=== PATIENT | female | born 1960 | race Caucasian/White ===

== ENCOUNTER 2024-01-05 09:41 | Inpatient (IN) | payer OTHER, SELFPAY ==
[2024-01-05] VITALS (10 sets, daily range): BP systolic 140–204; BP diastolic 78–117; PULSE 73–89; RESP 16–20; TEMP 36.4–37; O2SAT 93–100; BMI 30.9; BMI 31.0
--- NOTE | 2024-01-05 | ECG_ITS ---
Test Reason : HYPERTENSION Blood Pressure : / mmHG Vent. Rate : 074 BPM Atrial Rate : 074 BPM P-R Int : 138 ms QRS Dur : 082 ms QT Int : 388 ms P-R-T Axes : 038 004 030 degrees QTc Int : 430 ms Normal sinus rhythm Normal ECG No previous ECGs available Referred By: Generic ED Physician Electronically Signed By:CHARLEE GUPTA
--- NOTE | ~2024-01-05 | MR_ITS ---
MRI OF THE BRAIN WITHOUT IV CONTRAST INDICATION: CVA. COMPARISON: CT head and CTA head and neck 01/05/2024. TECHNIQUE: Multiplanar multisequence MR imaging of the brain was obtained without IV contrast. FINDINGS: There are a few punctate acute infarcts within the right dorsal coleen and involving the right frontal lobe at the high convexity. No mass effect and no hemorrhagic transformation. There is no hydrocephalus, extra-axial surface collection, or herniation. The major flow voids at the skull base are preserved. There is no intracranial hemorrhage on the gradient recalled echo acquisition. The midline structures are normal. The cerebellar tonsils are normally positioned. T2 signal changes throughout the supratentorial white matter and central coleen, possibly advanced chronic microangiopathy though nonspecific. There is a chronic infarct within the left frontal lobe. There are chronic microhemorrhages within the deep corral nuclei bilaterally, the brainstem, the cerebellar hemispheres, and the periphery of the cerebral hemispheres that could reflect chronic hypertensive microhemorrhages and/or that could be the sequela of amyloid angiopathy. Etat crible appearance of the basal ganglia bilaterally as the sequela of chronic hypertension. The craniocervical junction is normal. Osseous marrow signal intensity is homogenous. The visualized soft tissues are unremarkable. MR/MR head/brain wo con IMPRESSION: - There are a few punctate acute infarcts within the right dorsal coleen and involving the right frontal lobe at the high convexity. No mass effect and no hemorrhagic transformation. - T2 signal changes throughout the supratentorial white matter and central coleen, possibly advanced chronic microangiopathy though nonspecific. There is a chronic infarct within the left frontal lobe. - There are chronic microhemorrhages within the deep corral nuclei bilaterally, the brainstem, the cerebellar hemispheres, and the periphery of the cerebral hemispheres that could reflect chronic hypertensive microhemorrhages and/or that could be the sequela of amyloid angiopathy. - Etat crible appearance of the basal ganglia bilaterally as the sequela of chronic hypertension. Chronic lacunar infarcts within the cerebellar hemispheres bilaterally.
--- NOTE | ~2024-01-05 | CT_ITS ---
EXAMINATION: CT ANGIOGRAM HEAD CT ANGIOGRAM NECK CLINICAL INFORMATION: left sided numbness COMPARISON: None. TECHNIQUE: Test bolus sequences followed by intravenous administration 65 mL of Omnipaque 350. Helical imaging was performed in the axial plane from the aortic arch to the skull vertex. Delayed postcontrast imaging of the head was also performed. The data was processed at the lead neurodiagnostic technologist's workstation for generation of MIP sequences. Angled MIPs and volume rendered reformatted images were also generated at an offline 3D workstation. Stenoses are assessed in accordance with Cox et al. Quantification of Carotid Stenosis on CT Angiography. AJR 2006. 27(1):13-19. [address] CT examination was performed using dose optimization techniques as appropriate, variously including the following: *Automated exposure control *Adjustment of mA and/or kV according to patient size (this includes techniques or standardized protocols for targeted exams where dose is matched to indication/reason for exam; i.e. extremities or head) *Use of iterative reconstruction technique DLP: 1369.31 mGy-cm FINDINGS: CT HEAD: The ventricles and sulci are normal in size and configuration without significant volume loss or hydrocephalus. Confluent and patchy hypodensity in the right ventricular and deep white matter as well as deep corral nuclei, nonspecific but may suggest advanced chronic microangiopathy, which limits assessment for superimposed acute white matter process/ischemia. Age indeterminate hypodensity in the anterior left frontal lobe inclusive of the operculum would be more definitively aged on MRI. Chronic lacunar infarct in the left cerebellum. No acute intracranial hemorrhage or extra-axial fluid collection. No mass lesion, significant mass effect, or herniation pattern. No pathologic intra-axial enhancement or regional oligemia. The orbits are grossly normal. Paranasal sinuses and mastoid air cells are well aerated. Osseous structures are intact. CTA HEAD: No hemodynamically significant stenosis or occlusion in the anterior or posterior circulation. Mild stenosis of the distal basilar artery proximal to the basilar tip. right MEDICAL CARE ADMINISTRATOR. Prominent left posterior communicating artery with ectatic appearance of the distal left P1 segment and either stenotic versus congenitally hypoplastic proximal left P1 segment. Trace calcific plaque along the bilateral carotid siphons without associated stenosis. No aneurysms and no high flow vascular malformations. Timing of the contrast bolus allows assessment of the major dural venous sinuses, which all opacify normally CTA NECK: Classic 3 vessel branching pattern of the aortic arch. Origins of the great vessels are widely patent. The common carotid arteries are widely patent. The carotid bifurcations and bilateral internal carotid arteries are normal. The left vertebral artery is dominant. limited diagnostic assessment of the vertebral artery origins. Both vertebral arteries are widely patent throughout their extracranial cervical course. CT NECK: Horizontally impacted bilateral posterior mandibular molars and left posterior maxillary molar with pericoronal lucency of the right posterior mandibular molar. Carious left maxillary second molar and right maxillary molar, the latter with eroded dental crown and prominent periapical lucency. Asymmetric soft tissue fullness and enhancement in the right anterior tonsillar fossa with a peripherally enhancing low density focus measuring 4 mm (image 463, series 504), which may reflect asymmetric palatine tonsillar hyperplasia with retention cyst however recommend correlation with direct inspection to exclude underlying mucosal lesion. Paraseptal emphysema. Reversal of the normal cervical lordosis with cervical spondylitic changes contributing to apparent moderate C5-C6 and varying degrees of moderate to high-grade neural foraminal stenosis. 1.3 cm heterogeneous soft tissue within the left submandibular/submental region is favored to reflect partially herniated left sublingual gland via mylohyoid boutonniere defect. CT/CT angio head neck stroke IMPRESSION: 1. Advanced supratentorial white matter disease may reflect chronic microangiopathy or other white matter process, limiting assessment for superimposed acute ischemia. Age indeterminate hypodensity in the anterior left frontal lobe inclusive of the operculum would be more definitively aged on MRI. Chronic lacunar infarct in the left cerebellum. 2. No acute arterial occlusion or hemodynamically significant stenosis within the head or neck. 3. Cervical spondylitic changes contributing to apparent moderate C5-C6 and varying degrees of moderate to high-grade neural foraminal stenosis which could be further evaluated with cervical spine MRI if there is referrable myelopathy/radiculopathy. 4. Dental caries for which correlation with dental examination is advised. 5. Asymmetric soft tissue fullness and enhancement in the right anterior tonsillar fossa with a peripherally enhancing low density focus measuring 4 mm (image 463, series 504), which may reflect asymmetric palatine tonsillar hyperplasia with retention cyst however recommend correlation with direct inspection to exclude underlying mucosal lesion. Impression [address] Misbah Houser 12:39 PM PM and it was ascertained that the content and urgency of the report was understood at the time of direct communication.
--- NOTE | ~2024-01-05 | CT_ITS ---
EXAMINATION: CT HEAD WITHOUT CONTRAST (STROKE PROTOCOL) CLINICAL INFORMATION: Stroke protocol. Left-sided numbness COMPARISON: None available. TECHNIQUE: Contiguous axial imaging was performed from the skull base to vertex without intravenous administration of contrast. This CT examination was performed using dose optimization techniques as appropriate, variously including the following: *Automated exposure control *Adjustment of mA and/or kV according to patient size (this includes techniques or standardized protocols for targeted exams where dose is matched to indication/reason for exam; i.e. extremities or head) *Use of iterative reconstruction technique DLP: 605 mGy-cm FINDINGS: There is no evidence of acute intracranial hemorrhage or territorial infarction. No abnormal mass effect or midline shift is appreciated. Vogt-white differentiation is well preserved. No extra-axial fluid collections. The ventricular system and cortical sulci are prominent, consistent with age-appropriate volume loss. There are areas of low density in the periventricular and subcortical white matter, most consistent with sequelae of microvascular ischemic change. Soft tissues and osseous structures are unremarkable. There are calcifications of the cavernous internal carotid arteries. The visualized paranasal sinuses and mastoid air cells are well aerated. CT/CT head for stroke IMPRESSION: No acute intracranial pathology. Results relayed to Misbah Houser by Kristen Richmond at 12:17 PM.
--- NOTE | 2024-01-05 10:30 | PC.NURSE ---
Pt coming in from home via PV, pt reports she woke up this morning around 530 AM with numbness and tingling to her left side. Pt denies any falls, recent illnesses, CP, SOB, GRIMM or dizziness. Pt denies any changes in vision or this happening before. Pt does report some back to left lower back to the upper back thigh area. Pt is alert and oriented, breathing even and unlabored, skin WNL. Pt neg for slurred speech, facial droop, arm drift. Pt noted to be hypertensive.
[2024-01-05 11:29] LABS: MANUAL DIFF FLAG NO
[2024-01-05 11:32] LABS: Basophils Percent Auto 0.7 % (0-2); Eosinophils Absolute Auto 0.1 X10*3/uL (0.0-0.4); Eosinophils Percent Auto 1.2 % (0-4); Hematocrit 43.3 % (37.0-47.0); Hemoglobin 14.4 g/dl (12.0-16.0); Imm Gran Abs Auto 0.01 X10*3/uL (0.00-0.03); Imm Gran Pct Auto 0.2 % (0.0-0.4); Lymphocytes Absolute Auto 1.4 X10*3/uL (1.2-4.9); Lymphocytes Percent Auto 23.9 % (20-40); Mean Corpuscular HGB Conc 33.3 g/dl (31.0-35.0); Mean Corpuscular Volume 93.1 fL (80.0-98.0); Mean Platelet Volume 11.4 fL (9.4-12.3); Monocytes Absolute Auto 0.5 X10*3/uL (0.1-1.2); Monocytes Percent Auto 8.8 % (2-11); Neutrophils Absolute Auto 3.8 x10*3/uL (2.0-8.3); Neutrophils Percent Auto 65.2 % (45-73); Platelet Count 211 X10*3/uL (160-400); Red Blood Count 4.65 X10*6/uL (4.20-5.50); Red Cell Distribution Width 13.1 % (11.0-16.0); White Blood Count 5.8 X10*3/uL (4.8-10.8)
[2024-01-05 11:37] LABS: Prothrombin Time 11.6 SEC (11.1-13.3)
[2024-01-05 11:51] LABS: Alanine Aminotransferase 16 U/L (0-31); Albumin Level 3.8 g/dL (3.5-5.0); Alkaline Phosphatase 94 U/L (39-117); Anion Gap 10 (12-20); Aspartate Amino Transferase 14 U/L (5-31); Bilirubin Total 0.3 mg/dL (0.0-1.0); Blood Urea Nitrogen 14 mg/dL (9-16); Calcium 8.9 mg/dL (8.4-10.2); Carbon Dioxide 26 mmol/L (22-29); Chloride 110 mmol/L (96-108); Creatinine Clr Calc Pharmacy 109.8; Estimated Glomerular Filt Rate > 60; Glucose Random 89 mg/dL (60-115); Potassium 3.1 mmol/L (3.3-5.1); Sodium 143 mmol/L (135-145); Total Protein 6.6 g/dL (6.5-8.0)
--- NOTE | 2024-01-05 11:56 | ED.NEUROSD ---
HPI - Neuro Symptoms/Deficit General Chief Complaint: Neuro Symptoms/Deficit Stated Complaint: L Side Numbness Time Seen by Provider: 01/05/24 11:29 Source: patient and family Mode of arrival: ambulatory Limitations: no limitations History of Present Illness HPI Narrative: left sided numbness since waking up Onset (ago): hour(s) Severity: mild Related Data Allergies Allergy/AdvReac Type Severity Reaction Status Date / Time oxycodone AdvReac Hallucinati Verified 01/05/24 09:56 ons Review of Systems Review of Systems: Yes all other systems are reviewed and are negative Neurologic: Denies Sensory deficit (Neuro) [facility] Social History Social History Smoked in Last 30 Days: No Use of substances other than those prescribed or required for medical reasons: No Advance Directives: No Advance Directives Information Provided: Yes Physical Exam Vital Signs: Vital Signs: Last Vital Signs Temp 97.8 F 01/05/24 10:18 Pulse 74 01/05/24 12:51 Resp 16 01/05/24 12:51 BP 198/104 H 01/05/24 12:51 Pulse Ox 95 01/05/24 12:51 O2 Del Method Room Air 01/05/24 12:51 BMI result Body Mass Index 30.9 Const: General: healthy appearing Nutritional Appearance: average body habitus Orientation/consciousness: oriented to person and patient oriented x3 Limitations: no limitations HEENT: Head: Yes normal to inspection Ears: external ears normal General nose exam: Normal external nose present Mouth: Normal oral and palatal mucosa present and oropharynx normal Throat: Yes posterior oropharynx normal Eyes: General: appearance normal, both eyes and all related structures Neck: Other: supple Neck: Yes normal visual inspection Chest: Chest palpation & inspection: normal inspection of the chest Resp: Auscultation: clear to auscultation bilaterally Cardio: Jugular venous distension: no JVD Rate: regular rate Rhythm: regular rhythm Heart sounds: S1 normal heart sound present and S2 normal heart sound present GI: Inspection: Yes normal to inspection Palpation (GI): Soft to palpation, nontender and No hepatosplenomegaly present Auscultation: normal bowel sounds : General: Yes no CVA tenderness Back/Spine/Pelvis: Back: no CVA tenderness Skin: General skin exam: no rashes or lesions noted Neuro: General: oriented to person and patient oriented x3 Cranial nerves: Yes CN's II-XII intact bilaterally Motor exam (neuro): 5/5 motor strength present throughout Sensory Exam: No Sensory deficit (Neuro) Extrem: General: Yes normal to inspection Psych: Appearance: grossly normal Course Reevaluation(s) Reevaluation #1: patient with left frontal hypodensity with left frontal numbness will admit for further workup Time: 13:00 Reevaluation #2: I spent 40 minutes of critical care, with interventions, assessments, speaking to patient, consultants, and family. Time: 13:07 Medications Administered Discontinued Medications Generic Name Dose Route Start Last Admin Trade Name Freq PRN Reason Stop Dose Admin Iohexol 100 ml 01/05/24 12:19 01/05/24 12:19 Iohexol 350 Mg/Ml 100 Ml Infus..Btl IV 01/05/24 12:20 65 ml ONCE ONE Administration Labetalol HCl 10 mg 01/05/24 11:51 01/05/24 12:43 Labetalol Hcl 100 Mg/20 Ml Vial IVPUSH 01/05/24 11:52 10 mg ONCE ONE Administration Medical Decision Making Differential Diagnosis Differential Diagnoses: The differential diagnosis associated with the presentation includes (CVA, cerebral bleed, tumor, TIA, hypertensive urgency were all considered) Admission/Observation Consideration of admission/observation: Escalation of care including admission/observation considered (upon arrival patient considered for admission) Consult Healthcare Provider Management of the patient was discussed with: Senior Product Marketing Manager (stroke team) Lab Data 01/05/24 11:24 01/05/24 11:24 Labs: Lab Results 01/05/24 01/05/24 01/05/24 Range/Units 11:24 11:55 11:56 WBC 5.8 (4.8-10.8) X10*3/uL RBC 4.65 (4.20-5.50) X10*6/uL Hgb 14.4 (12.0-16.0) g/dl Hct 43.3 (37.0-47.0) % MCV 93.1 (80.0-98.0) fL MCH 31.0 (27.0-33.0) pg MCHC 33.3 (31.0-35.0) g/dl RDW 13.1 (11.0-16.0) % Plt Count 211 (160-400) X10*3/uL MPV 11.4 (9.4-12.3) fL Immature Gran % (Auto) 0.2 (0.0-0.4) % Neut % (Auto) 65.2 (45-73) % Lymph % (Auto) 23.9 (20-40) % [place] % (Auto) 8.8 (2-11) % Eos % (Auto) 1.2 (0-4) % Baso % (Auto) 0.7 (0-2) % Lymph # (Auto) 1.4 (1.2-4.9) X10*3/uL [place] # (Auto) 0.5 (0.1-1.2) X10*3/uL Eos # (Auto) 0.1 (0.0-0.4) X10*3/uL Baso # (Auto) 0.0 (0.0-0.2) X10*3/uL Abs Immat Gran (auto) 0.01 (0.00-0.03) X10*3/uL Absolute Neuts (auto) 3.8 (2.0-8.3) x10*3/uL Absolute Nucleated RBC 0.000 (0.0-0.012) X10*3/uL Nucleated RBC % (auto) 0.0 (0.0-0.2) /100WBC PT 11.6 (11.1-13.3) SEC Whole Blood PT 12.4 (11.1-13.5) sec INR 1.0 (0.9-1.1) Whole Blood INR 1.0 (0.9-1.1) Sodium 143 (135-145) mmol/L Potassium 3.1 L (3.3-5.1) mmol/L Chloride 110 H (96-108) mmol/L Carbon Dioxide 26 (22-29) mmol/L Anion Gap 10 L (12-20) BUN 14 (9-16) mg/dL Creatinine 0.63 (0.5-1.4) mg/dL Estim Creat Clear Calc 109.8 Estimated GFR > 60 POC Glucose 101 (60-115) mg/dL Random Glucose 89 (60-115) mg/dL Calcium 8.9 (8.4-10.2) mg/dL Total Bilirubin 0.3 (0.0-1.0) mg/dL AST 14 (5-31) U/L ALT 16 (0-31) U/L Alkaline Phosphatase 94 (39-117) U/L Total Protein 6.6 (6.5-8.0) g/dL Albumin 3.8 (3.5-5.0) g/dL Independent Interpretation I performed an independent interpretation of an: EKG (sinus 74, no st or twave changess) and CT Scan (brain: left frontal hypodensity) Radiology Impression Discussion of test interpretation with radiology: I discussed test interpretation with the radiologist Independent Historian Clinical information obtained from an independent historian. History obtained from or confirmed by: Spouse Tests considered The following testing was considered but not selected: MRI of brain considered will be done as in patient NIH Stroke Scale Time: 12:00 Level of Consciousness: Alert Level of Consciousness Questions: Answers both questions correctly Level of Consciousness Commands: Performs both tasks correctly Best Gaze: Normal Visual: No visual loss Facial Palsy: Normal Motor Arm (Right): No drift Motor Arm (Left): No drift Motor Leg (Right): No drift Motor Leg (Left): No drift Limb Ataxia: Absent Sensory: Normal Best Language: No aphasia Dysarthia: Normal Extinction and Inattention: No abnormality Score: 0 Discharge Plan Discharge Clinical Impression: Transient cerebral ischemia Patient Disposition: Admitted As Inpatient
[2024-01-05 11:59] LABS: Prothrombin Time Whole Bld POC 12.4 sec (11.1-13.5)
[2024-01-05 12:00] LABS: Glucose, Whole Blood 101 mg/dL (60-115)
[2024-01-05] MEDS: iohexoL 350 MG/ML 100 ML INFUS..BTL IV (12:19)
[2024-01-05] MEDS: Labetalol HCL 100 MG/20 ML VIAL 10 MG IVPUSH (12:43)
--- NOTE | 2024-01-05 12:56 | MHC.STROKE ---
Called to ED for stroke alert. Patient reports that she woke at 0530 with left sided numbness/tingling that extended from her arm all the way down her leg into her left foot. Reports that she felt well yesterday. Denies headache. Denies any visual/language disturbances. NIH score 0 upon provider evaluation. Pt awake, alert, oriented x 3. Skin warm and dry. Resp unlabored. Denies N/V. Denies any pain. Denies headache. Speech is clear. Hand grasp slightly weaker on the left. Bilateral equal leg strength. Mild finger to nose ataxia on the left. Heel to [place] test normal bilaterally. Pt is hypertensive in the ED and receiving IV labetolol. Stroke Education provided. Nursing swallow screen completed, patient passed. CT scans complete, awaiting results. Pt educated on plan.
--- NOTE | 2024-01-05 13:15 | PC.NURSE ---
Spoke to Lab, Troponin and Lipid panel okay to be added on to blood already sent
--- NOTE | 2024-01-05 13:19 | PM.IMHP ---
History of Present Illness Date of Service: 01/05/24 Attending physician on admission: Henry Antunez Chief Complaint: Left-sided numbness Pt is a 63-year-old female with no know PMH who has not seen a PCP in many years who presents to the ED for evaluation of left-sided numbness and tingling since this morning. Pt states noticed symptoms when woke up, and extended from left shoulder to foot. Has not noticed any reduction in strength, but feels like her coordination and balance is off when walking. No facial deficits noted: Denies dysarthria, difficulty word finding, facial droop, headache, or acute vision changes. Currently her leg feels better than before, but upper extremity unchanged. Reports similar episode around 2 years ago. Says she exercised and stretched, and symptoms resolved in a few weeks. Did not seek any medical intervention at that time. Patient denies chest pain/pressure, palpitations. No shortness of breath. Denies fever, chills, nausea, vomiting, abdominal pain. In the ED pt was hypertensive up to 204/97, vitals otherwise WNL. Labs were significant for potassium 3.1, otherwise grossly unremarkable. No leukocytosis. Stable H&H. Renal and hepatic function WNL. CT of head found no acute intracranial pathology. CTA of head and neck found advanced supratentorial white matter disease, and age indeterminate hypodensity in anterior left frontal lobe, and chronic lacunar infarct in the left cerebellum. Did not find any acute arterial occlusion or hemodynamically significant stenosis within head or neck. ?Also found cervical spondylitic changes, dental caries, and asymmetric soft tissue fullness of right anterior tonsillar fossa. EKG demonstrated normal sinus rhythm without evidence of significant ST elevations or depressions. Pt was treated with labetalol. Pt will be admitted to the hospital for treatment and further evaluation of possible CVA. Review of Systems Review of Systems: Left-sided arm and foot numbness and tingling Left-sided ataxia Denies reduction and strength No dysarthria, difficulty word finding, facial droop Denies headache, acute vision changes No chest pain/pressure, palpitations PMFSH Social History Household Members: Spouse Housing: House Do you presently have visiting nurse or other home services: No Patient Tobacco Use Status: Never used Tobacco service: No Meds Allergies Allergy/AdvReac Type Severity Reaction Status Date / Time oxycodone AdvReac Hallucinati Verified 01/05/24 09:56 ons Physical Exam Vital Signs and Narrative: Vital Signs: Last Vital Signs Temp 97.8 F 01/05/24 10:18 Pulse 74 01/05/24 12:51 Resp 16 01/05/24 12:51 BP 198/104 H 01/05/24 12:51 Pulse Ox 95 01/05/24 12:51 O2 Del Method Room Air 01/05/24 12:51 BMI result Body Mass Index 30.9 Constitutional: Alert, in no acute distress. Mental Status: Oriented to person, place and time. Eyes: Pupils are equal, round, and reactive to light. Ear, Nose, and Throat: Oropharynx clear, mucous membranes moist. Ears and nose without deformities. Trachea midline. Respiratory: Clear to auscultation bilaterally. No wheezing, rales, or rhonchi. Cardiovascular: S1, S2 regular. No murmurs, rubs, or gallops. Gastrointestinal: Abdomen soft, non-tender, non-distended. Normal bowel sounds. Neurologic: Cranial nerves II-XII are grossly intact bilaterally. Moves all extremities spontaneously. Reduced sensation to light touch of left upper and lower extremity. Preserved strength and ROM of upper and lower extremities bilaterally. Skin: Warm, dry. Musculoskeletal: No cyanosis or clubbing. Extremities: No edema. Psychiatric: Normal mood and affect. Results Labs 01/05/24 11:24 01/06/24 05:25 Labs: Laboratory Results - last 24 hr 01/05/24 01/05/24 01/05/24 11:24 11:55 11:56 MCV 93.1 MCH 31.0 MCHC 33.3 RDW 13.1 Plt Count 211 MPV 11.4 Immature Gran % (Auto) 0.2 Neut % (Auto) 65.2 Lymph % (Auto) 23.9 [place] % (Auto) 8.8 Eos % (Auto) 1.2 Baso % (Auto) 0.7 Lymph # (Auto) 1.4 [place] # (Auto) 0.5 Eos # (Auto) 0.1 Baso # (Auto) 0.0 Abs Immat Gran (auto) 0.01 Absolute Neuts (auto) 3.8 Absolute Nucleated RBC 0.000 Nucleated RBC % (auto) 0.0 PT 11.6 Whole Blood PT 12.4 INR 1.0 Whole Blood INR 1.0 Anion Gap 10 L Estim Creat Clear Calc 109.8 Estimated GFR > 60 POC Glucose 101 Random Glucose 89 Calcium 8.9 Total Bilirubin 0.3 AST 14 ALT 16 Alkaline Phosphatase 94 Total Protein 6.6 Albumin 3.8 Imaging Radiologist's Impressions: Impressions Head CT 01/05/24 12:01 IMPRESSION: No acute intracranial pathology. Results relayed to Misbah Houser by Kristen Richmond at 12:17 PM. Head/Neck CTA 01/05/24 12:22 IMPRESSION: 1. Advanced supratentorial white matter disease may reflect chronic microangiopathy or other white matter process, limiting assessment for superimposed acute ischemia. Age indeterminate hypodensity in the anterior left frontal lobe inclusive of the operculum would be more definitively aged on MRI. Chronic lacunar infarct in the left cerebellum. 2. No acute arterial occlusion or hemodynamically significant stenosis within the head or neck. 3. Cervical spondylitic changes contributing to apparent moderate C5-C6 and varying degrees of moderate to high-grade neural foraminal stenosis which could be further evaluated with cervical spine MRI if there is referrable myelopathy/radiculopathy. 4. Dental caries for which correlation with dental examination is advised. 5. Asymmetric soft tissue fullness and enhancement in the right anterior tonsillar fossa with a peripherally enhancing low density focus measuring 4 mm (image 463, series 504), which may reflect asymmetric palatine tonsillar hyperplasia with retention cyst however recommend correlation with direct inspection to exclude underlying mucosal lesion. Impression [address] Misbah Houser 12:39 PM PM and it was ascertained that the content and urgency of the report was understood at the time of direct communication. Assessment and Plan (1) Numbness on left side: Status: Acute Plan Pt is a 63-year-old female with no know PMH who has not seen a PCP in many years who presents to the ED for evaluation of left-sided numbness and tingling since this morning. Pt will be admitted to the hospital for treatment and further evaluation of possible CVA. Left-sided upper and lower extremity numbness and tingling Concerning for possible CVA CTA of head/neck out age-indeterminate hypodensity in anterior frontal, chronic lacunar infarct in cerebellum Patient currently not back to baseline, upper extremity symptoms unchanged, lower extremity symptoms improved Will start on aspirin 81 mg daily, atorvastatin 40 mg daily Echocardiogram Lipid profile PT/OT Neurology consult Consider inpatient MRI pending neurology recommendations Monitor on telemetry Hypertensive urgency Blood pressure is high as 204/97 in the ED Given labetalol 10 mg IV in ED Will start mg p.o. daily Monitor BP Hypokalemia Potassium 3.1 at time of presentation Will give potassium supplementation Follow BMP White matter changes on CTA CTA showed advanced supratentorial white matter disease that may reflect chronic microangiopathy or other white matter process Mother diagnosed with dementia Family concerned with patient's short-term memory which they report as noticeably worse in the past few years Follow-up outpatient for further dementia workup Dental caries Incidental CTA findings Follow up outpatient with dentist Full Code Attending:?Dr. Antunez DVT Prophylaxis: Lovenox Pt will require a hospitalization of at least two nights for treatment of?left-sided numbness and tingling concerning for CVA. Patient will require hospitalization for additional workup for possible CVA, including additional imaging, close cardiac monitoring, and specialist consultation. Quality Stroke Does the patient have a stroke diagnosis?: No Reason for No Anti-thrombotic by Day Two: Contraindicated (Last known well time the previous evening. Outside of tNK therapeutic window.) VTE Prior VTE?: No VTE Risk Level:: Medical - moderate - high VTE Device Contraindication: Treatment Not Indicated VTE Drug Contraindication: N/A - Med Ordered
[2024-01-05 13:23] LABS: Partial Thromboplastin Time 28.2 SEC (26.0-36.8)
[2024-01-05 13:26] LABS: Stroke Lab Use COMPLETE
[2024-01-05 13:37] LABS: Cholesterol 228 mg/dL (<200); HDL Cholesterol 86 mg/dL (>40); LDL Cholesterol Calculated 129 mg/dL (<100); Triglycerides 66 mg/dL (<150); Troponin-I High Sensitivity 3.4 ng/L (<3.5-17.0)
[2024-01-05] MEDS: Potassium Chloride Packet 20 MEQ PACKET 40 MEQ PO (13:43)
--- NOTE | 2024-01-05 14:27 | PHA.MEDREC ---
Pharmacy Consult ? Medication Reconciliation Pharmacy has completed the medication reconciliation.
[2024-01-05] MEDS: amLODIPine Besylate 5 MG TABLET PO (15:17)
[2024-01-05] MEDS: Enoxaparin Sodium 40 MG/0.4 ML SYRINGE SUBCUT (15:18)
--- NOTE | 2024-01-05 17:12 | PM.NEUROCN ---
History of Present Illness Data of Consult Service Date: 01/05/24 Primary Care Provider: None Physician HPI This is a 63-year-old female who has not seen a PCP in many years and is on no meds, presents to the ED for evaluation of left-sided numbness and tingling since this morning. She noticed symptoms when woke up, and the numbness extended from left shoulder to foot. Has not noticed any reduction in strength, but feels like her coordination and balance is off when walking. No facial deficits noted: Denies dysarthria, difficulty word finding, facial droop, headache, or acute vision changes. Currently her leg feels better than before, but upper extremity unchanged. Reports similar episode around 2 years ago. Says she exercised and stretched, and symptoms resolved in a few weeks. Did not seek any medical intervention at that time. Patient denies chest pain/pressure, palpitations. No shortness of breath. Denies fever, chills, nausea, vomiting, abdominal pain. In the ED pt was hypertensive up to 204/97, vitals otherwise WNL. Labs were significant for potassium 3.1, otherwise grossly unremarkable. No leukocytosis. Stable H&H. Renal and hepatic function WNL. CT of head showed extensive white matter micrivacsular disease with no acute intracranial pathology. CTA of head and neck found did not find any acute arterial occlusion or hemodynamically significant stenosis. EKG demonstrated normal sinus rhythm without evidence of significant ST elevations or depressions. Pt was treated with labetalol. Review of Systems Review of Systems: Left-sided arm and foot numbness and tingling Left-sided ataxia Denies reduction and strength No dysarthria, difficulty word finding, facial droop Denies headache, acute vision changes No chest pain/pressure, palpitations Yes all other systems are reviewed and are negative Neurologic: Denies Sensory deficit (Neuro) [facility] Social History Social History Smoked in Last 30 Days: No Use of substances other than those prescribed or required for medical reasons: No Advance Directives: No Advance Directives Information Provided: Yes Meds Allergies Allergy/AdvReac Type Severity Reaction Status Date / Time oxycodone AdvReac Hallucinati Verified 01/05/24 09:56 ons Active Medications: Current Medications Acetaminophen (Acetaminophen 325 Mg Tablet) 650 mg PO Q6H PRN PRN Reason: Pain, Mild (Pain Scale 1-3) Amlodipine Besylate (Amlodipine Besylate 5 Mg Tablet) 5 mg PO DAILY [facility]; Protocol Last Admin: 01/05/24 15:17 Dose: 5 mg Aspirin (Aspirin Enteric Coated 81 Mg Tablet.Dr) 81 mg PO DAILY [facility] Atorvastatin Calcium (Atorvastatin Calcium 40 Mg Tablet) 40 mg PO BEDTIME [facility] Benzonatate (Benzonatate 100 Mg Capsule) 100 mg PO TID PRN PRN Reason: Cough Docusate Sodium (Docusate Sodium 100 Mg Capsule) 100 mg PO DAILY PRN PRN Reason: Constipation Enoxaparin Sodium (Enoxaparin Sodium 40 Mg/0.4 Ml Syringe) 40 mg SUBCUT Q24H [facility] Last Admin: 01/05/24 15:18 Dose: 40 mg Melatonin (Melatonin 3 Mg Tablet) 6 mg PO BEDTIME PRN PRN Reason: Insomnia Ondansetron HCl (Ondansetron Hcl 4 Mg/2 Ml Vial) 4 mg IVPUSH Q8H PRN PRN Reason: Nausea and Vomiting Sodium Chloride (0.9 % Sodium Chloride Flush 3 Ml Syringe) 3 ml IVFLUSH QSHIFT [facility] Home Medications Medication Instructions Recorded Confirmed Last Taken Type No Known Home Meds 01/05/24 01/05/24 Unknown History Physical Exam Vital Signs: Vital Signs: Last Vital Signs Temp 98.0 F 01/05/24 16:44 Pulse 73 01/05/24 16:44 Resp 18 01/05/24 16:44 BP 168/81 H 01/05/24 16:44 Pulse Ox 95 01/05/24 16:44 O2 Del Method Room Air 01/05/24 16:44 BMI result Body Mass Index 30.9 Const: General: healthy appearing Nutritional Appearance: average body habitus Orientation/consciousness: oriented to person and patient oriented x3 Limitations: no limitations HEENT: Head: Yes normal to inspection Ears: external ears normal General nose exam: Normal external nose present Mouth: Normal oral and palatal mucosa present and oropharynx normal Throat: Yes posterior oropharynx normal Eyes: General: appearance normal, both eyes and all related structures Neck: Other: supple Neck: Yes normal visual inspection Chest: Chest palpation & inspection: normal inspection of the chest Resp: Auscultation: clear to auscultation bilaterally Cardio: Jugular venous distension: no JVD Rate: regular rate Rhythm: regular rhythm Heart sounds: S1 normal heart sound present and S2 normal heart sound present GI: Inspection: Yes normal to inspection Palpation (GI): Soft to palpation, nontender and No hepatosplenomegaly present Auscultation: normal bowel sounds : General: Yes no CVA tenderness Back/Spine/Pelvis: Back: no CVA tenderness Skin: General skin exam: no rashes or lesions noted Neuro: Other: Non focal exam except some subjective sensory deficit in LUE General: oriented to person and patient oriented x3 Cranial nerves: Yes CN's II-XII intact bilaterally Motor exam (neuro): 5/5 motor strength present throughout Sensory Exam: No Sensory deficit (Neuro) Extrem: General: Yes normal to inspection Psych: Appearance: grossly normal Results Labs 01/05/24 11:24 01/05/24 11:24 Labs: Short CBC 01/05/24 Range/Units 11:24 WBC 5.8 (4.8-10.8) X10*3/uL Hgb 14.4 (12.0-16.0) g/dl Hct 43.3 (37.0-47.0) % Plt Count 211 (160-400) X10*3/uL BMP 01/05/24 11:24 Sodium 143 Potassium 3.1 L Chloride 110 H Carbon Dioxide 26 BUN 14 Creatinine 0.63 Calcium 8.9 Liver Function 01/05/24 Range/Units 11:24 Total Bilirubin 0.3 (0.0-1.0) mg/dL AST 14 (5-31) U/L ALT 16 (0-31) U/L Alkaline Phosphatase 94 (39-117) U/L Albumin 3.8 (3.5-5.0) g/dL Assessment and Plan (1) Numbness on left side: Status: Acute Probable small acute lacunar infacrt in the thalamus from small vessel disease from untreated HBP. Recom. MRI brain. PT/OT. BP control, [id number] , Atorvastatin 40mg. Plan Pt is a 63-year-old female with no know PMH who has not seen a PCP in many years who presents to the ED for evaluation of left-sided numbness and tingling since this morning. Pt will be admitted to the hospital for treatment and further evaluation of possible CVA. Left-sided upper and lower extremity numbness and tingling Concerning for possible CVA CTA of head/neck out age-indeterminate hypodensity in anterior frontal, chronic lacunar infarct in cerebellum Patient currently not back to baseline, upper extremity symptoms unchanged, lower extremity symptoms improved Will start on aspirin 81 mg daily, atorvastatin 40 mg daily Echocardiogram Lipid profile PT/OT Neurology consult Consider inpatient MRI pending neurology recommendations Monitor on telemetry Hypertensive urgency Blood pressure is high as 204/97 in the ED Given labetalol 10 mg IV in ED Will start mg p.o. daily Monitor BP Hypokalemia Potassium 3.1 at time of presentation Will give potassium supplementation Follow BMP White matter changes on CTA CTA showed advanced supratentorial white matter disease that may reflect chronic microangiopathy or other white matter process Mother diagnosed with dementia Family concerned with patient's short-term memory which they report as noticeably worse in the past few years Follow-up outpatient for further dementia workup Dental caries Incidental CTA findings Follow up outpatient with dentist Full Code Attending:?Dr. Antunez DVT Prophylaxis: Lovenox Pt will require a hospitalization of at least two nights for treatment of?left-sided numbness and tingling concerning for CVA. Patient will require hospitalization for additional workup for possible CVA, including additional imaging, close cardiac monitoring, and specialist consultation. Procedures Date of Service Date of Service: 01/05/24
[2024-01-05] MEDS: 0.9 % Sodium Chloride Flush 3 ML SYRINGE IVFLUSH ×2 (17:16→20:12)
[2024-01-05] MEDS: Atorvastatin Calcium 40 MG TABLET PO (20:11)
[2024-01-06 03:28] VITALS: BP 136/83; PULSE 70; RESP 20; TEMP 36.3; O2SAT 94
[2024-01-06 06:10] LABS: Anion Gap 10 (12-20); Blood Urea Nitrogen 12 mg/dL (9-16); Carbon Dioxide 27 mmol/L (22-29); Chloride 110 mmol/L (96-108); Creatinine Clr Calc Pharmacy 108.4; Estimated Glomerular Filt Rate > 60; Glucose Random 92 mg/dL (60-115); Potassium 4.2 mmol/L (3.3-5.1); Sodium 143 mmol/L (135-145)
[2024-01-06 06:29] LABS: TSH reflex Free T4 0.78 uIU/mL (0.32-4.0)
[2024-01-06 06:50] LABS: Folate 10.9 ng/mL (> or = 4.0); Vitamin B12 299 pg/mL (200-900)
[2024-01-06 07:12] VITALS: BP 132/77; PULSE 78; RESP 20; TEMP 36.2; O2SAT 94
--- NOTE | 2024-01-06 08:34 | MHC.CM.PN ---
CM met with Patient at bedside and assisted her with the completion of a HCP; she named her /Abdelrahman as her Agent. Patient lives in a house with her and she required no services nor DME RECEIVER BULK SYSTEM. PT is recommending, no acute PT needs at this time; home self care is the tentative plan. Patient has no PCP; PCP pamphlet to be given to Patient. CM will follow.
[2024-01-06] MEDS: Aspirin Enteric Coated 81 MG TABLET.DR PO (09:51)
[2024-01-06] MEDS: amLODIPine Besylate 5 MG TABLET PO (09:51)
[2024-01-06] MEDS: 0.9 % Sodium Chloride Flush 3 ML SYRINGE IVFLUSH ×2 (09:52→14:49)
[2024-01-06 11:21] VITALS: BP 144/73; PULSE 73; RESP 20; TEMP 36.3; O2SAT 93
--- NOTE | 2024-01-06 11:42 | P.PNNE_ITS ---
Subjective Subjective Date of Service: 01/06/24 Interval History: Numbnessfrom th eleg and left arm is gone , but hand still feels asleep and tingly. MRI brain pending Critical Care Time (minutes): 0 Physical Exam 2 Vital Signs: Vital Signs: Last Vital Signs Temp 97.3 F 01/06/24 11:21 Pulse 73 01/06/24 11:21 Resp 20 01/06/24 11:21 BP 144/73 H 01/06/24 11:21 Pulse Ox 93 01/06/24 11:21 O2 Del Method Room Air 01/06/24 11:21 BMI result Body Mass Index 31.0 Const: General: healthy appearing Nutritional Appearance: average body habitus Orientation/consciousness: oriented to person and patient oriented x3 Limitations: no limitations HEENT: Head: Yes normal to inspection Ears: external ears normal General nose exam: Normal external nose present Mouth: Normal oral and palatal mucosa present and oropharynx normal Throat: Yes posterior oropharynx normal Eyes: General: appearance normal, both eyes and all related structures Neck: Other: supple Neck: Yes normal visual inspection Chest: Chest palpation & inspection: normal inspection of the chest Resp: Auscultation: clear to auscultation bilaterally Cardio: Jugular venous distension: no JVD Rate: regular rate Rhythm: r egular rhythm Heart sounds: S1 normal heart sound present and S2 normal heart sound present GI: Inspection: Yes normal to inspection Palpation (GI): Soft to palpation, nontender and No hepatosplenomegaly present Auscultation: normal bowel sounds : General: Yes no CVA tenderness Back/Spine/Pelvis: Back: no CVA tenderness Skin: General skin exam: no rashes or lesions noted Neuro: Other: Non focal exam except some subjective sensory deficit in LUE General: oriented to person and patient oriented x3 Cranial nerves: Yes CN's II-XII intact bilaterally Motor exam (neuro): 5/5 motor strength present throughout Sensory Exam: No Sensory deficit (Neuro) Extrem: General: Yes normal to inspection Psych: Appearance: grossly normal Objective Data Labs 01/05/24 11:24 01/06/24 05:25 Labs: Laboratory Results - last 24 hr 01/05/24 01/05/24 01/05/24 11:24 11:55 11:56 Hold Purple Top Whole Blood PT 12.4 Whole Blood INR 1.0 APTT 28.2 Sodium 143 Potassium 3.1 L Chloride 110 H Carbon Dioxide 26 Anion Gap 10 L BUN 14 Creatinine 0.63 Estim Creat Clear Calc 109.8 Estimated GFR > 60 POC Glucose 101 Random Glucose 89 Calcium 8.9 Total Bilirubin 0.3 AST 14 ALT 16 Alkaline Phosphatase 94 Troponin I High Sens 3.4 Total Protein 6.6 Albumin 3.8 Triglycerides 66 Cholesterol 228 H LDL Cholesterol, Calc 129 H HDL Cholesterol 86 Vitamin B12 Folate TSH 01/06/24 05:25 Hold Purple Top SEE NOTE Whole Blood PT Whole Blood INR APTT Sodium 143 Potassium 4.2 D Chloride 110 H Carbon Dioxide 27 Anion Gap 10 L BUN 12 Creatinine 0.64 Estim Creat Clear Calc 108.4 Estimated GFR > 60 POC Glucose Random Glucose 92 Calcium 9.0 Total Bilirubin AST ALT Alkaline Phosphatase Troponin I High Sens Total Protein Albumin Triglycerides Cholesterol LDL Cholesterol, Calc HDL Cholesterol Vitamin B12 299 Folate 10.9 TSH 0.78 Progress Note: A&P Assessment and plan (1) Numbness on left side: Status: Acute Assessment and Plan: Probable small acute lacunar infacrt in the thalamus from small vessel disease from untreated HBP. BP control, [id number] , Atorvastatin 40mg. Stress BP control. Can be discharged after MRI. Procedures Date of Service Date of Service: 01/06/24 Quality Stroke Does the patient have a stroke diagnosis?: No Reason for No Anti-thrombotic by Day Two: Contraindicated (Last known well time the previous evening. Outside of tNK therapeutic window.) VTE Prior VTE?: No VTE Risk Level:: Medical - moderate - high VTE Device Contraindication: Treatment Not Indicated VTE Drug Contraindication: N/A - Med Ordered
--- NOTE | 2024-01-06 12:21 | MHC.CM.PN ---
CM assisted Patient with naming her Daughter/Lesley @ [phone] as her Alternate HCP Agent.
--- NOTE | 2024-01-06 14:13 | P.DS_ITS ---
DS: Providers Provider Date of Service: 01/06/24 Date of admission: 01/05/24 14:39 Date of discharge: 01/06/24 Primary care physician: None Physician Consults: 01/05/24 14:26 Consult to Neurology Routine Consulting Provider: [facility] Reason for consultation: Left-sided numbness/tingling, ?CVA Attending physician on discharge: Henry Antunez Discharging clinician: Henry Antunez DS: Diagnosis Discharge Diagnosis (1) Numbness on left side: Status: Acute DS: Summary Hospital Course Hospital Course: 63-year-old female with no know PMH who has not seen a PCP in many years who presents to the ED for evaluation of left-sided numbness and tingling since this morning. Pt states noticed symptoms when woke up, and extended from left shoulder to foot. Has not noticed any reduction in strength, but feels like her coordination and balance is off when walking. No facial deficits noted: Denies dysarthria, difficulty word finding, facial droop, headache, or acute vision changes. Currently her leg feels better than before, but upper extremity unchanged. Reports similar episode around 2 years ago. Says she exercised and stretched, and symptoms resolved in a few weeks. Did not seek any medical intervention at that time. Patient denies chest pain/pressure, palpitations. No shortness of breath. Denies fever, chills, nausea, vomiting, abdominal pain. In the ED pt was hypertensive up to 204/97, vitals otherwise WNL. Labs were significant for potassium 3.1, otherwise grossly unremarkable. No leukocytosis. Stable H&H. Renal and hepatic function WNL. CT of head found no acute intracranial pathology. CTA of head and neck found advanced supratentorial white matter disease, and age indeterminate hypodensity in anterior left frontal lobe, and chronic lacunar infarct in the left cerebellum. Did not find any acute arterial occlusion or hemodynamically significant stenosis within head or neck. ?Also found cervical spondylitic changes, dental caries, and asymmetric soft tissue fullness of right anterior tonsillar fossa. EKG demonstrated normal sinus rhythm without evidence of significant ST elevations or depressions. Pt was treated with labetalol. Pt will be admitted to the hospital for treatment and further evaluation of possible CVA. Hospital course: Patient came Left-sided upper and lower extremity numbness and tingling-further workup including cta done-indeterminate hypodensity in anterior frontal,ch. cerebellar hemispheres followed by MRI : showed ch infracts of Chronic lacunar infarcts within the cerebellar hemispheres bilaterally,a few punctate acute infarcts within the right dorsal coleen and involving the right frontal lobe at the high convexity.She was admitted and monitored on telemetry which seems fine, started on amlodipine for blood pressure control, aspirin and statin- also seen by Neurology: CTA a nd MRI reviewed: Recommended to continue aspirin, statin and beta blood pressure control. plan: Continue aspirin 81 mg daily, atorvastatin 40 mg daily, amlodipine 5 mg daily Monitor blood pressure closely at home Strongly advised to get PCP appointment for further management. If blood pressure consistently above 140/90 mmhg-need further adjustment of amlodipine dosing. Seen by PT and OT-recommended DC home. Assessment and plan coordination time spent 50 minute, discussed with the patient detail she understand and in agreement with the above plan. Time Attestation Total time managing care of this patient today: 50 mintues. Discharge Coordination Time (in mins): 40 Quality: Safe Use of Opioids Does Pt have an Active Cancer Diagnosis on the Problem List?: No Quality: Stroke Does the patient have a stroke diagnosis?: No Physical Exam Vital Signs: Vital Signs: Last Vital Signs Temp 97.3 F 01/06/24 11:21 Pulse 73 01/06/24 11:21 Resp 20 01/06/24 11:21 BP 144/73 H 01/06/24 11:21 Pulse Ox 93 01/06/24 11:21 O2 Del Method Room Air 01/06/24 11:21 BMI result Body Mass Index 31.0 Appearance: Alert.? Oriented X3.? not in distress. cvs: rrr, [id number] . res: clear to auscultation ,no rhonchii or wheezing abd: no rebound or guarding ,nt, bs present. ext pulses present , no cyanosis . neuro: axo3 , nonfocal. DS: Data Data Completed and Pending Labs on day of discharge: Laboratory Results - last 24 hr 01/06/24 05:25 Hold Purple Top SEE NOTE Sodium 143 Potassium 4.2 D Chloride 110 H Carbon Dioxide 27 Anion Gap 10 L BUN 12 Creatinine 0.64 Estim Creat Clear Calc 108.4 Estimated GFR > 60 Random Glucose 92 Calcium 9.0 Vitamin B12 299 Folate 10.9 TSH 0.78 Imaging Chest x-ray: Radiologist's impression: ITS Impressions Head CT 01/05/24 12:01 IMPRESSION: No acute intracranial pathology. Results relayed to Misbah Houser by Kristen Richmond at 12:17 PM. Head/Neck CTA 01/05/24 12:22 IMPRESSION: 1. Advanced supratentorial white matter disease may reflect chronic microangiopathy or other white matter process, limiting assessment for superimposed acute ischemia. Age indeterminate hypodensity in the anterior left frontal lobe inclusive of the operculum would be more definitively aged on MRI. Chronic lacunar infarct in the left cerebellum. 2. No acute arterial occlusion or hemodynamically significant stenosis within the head or neck. 3. Cervical spondylitic changes contributing to apparent moderate C5-C6 and varying degrees of moderate to high-grade neural foraminal stenosis which could be further evaluated with cervical spine MRI if there is referrable myelopathy/radiculopathy. 4. Dental caries for which correlation with dental examination is advised. 5. Asymmetric soft tissue fullness and enhancement in the right anterior tonsillar fossa with a peripherally enhancing low density focus measuring 4 mm (image 463, series 504), which may reflect asymmetric palatine tonsillar hyperplasia with retention cyst however recommend correlation with direct inspection to exclude underlying mucosal lesion. Impression [address] Misbah Houser 12:39 PM PM and it was ascertained that the content and urgency of the report was understood at the time of direct communication. Brain MRI 01/06/24 12:51 IMPRESSION: - There are a few punctate acute infarcts within the right dorsal coleen and involving the right frontal lobe at the high convexity. No mass effect and no hemorrhagic transformation. - T2 signal changes throughout the supratentorial white matter and central coleen, possibly advanced chronic microangiopathy though nonspecific. There is a chronic infarct within the left frontal lobe. - There are chronic microhemorrhages within the deep corral nuclei bilaterally, the brainstem, the cerebellar hemispheres, and the periphery of the cerebral hemispheres that could reflect chronic hypertensive microhemorrhages and/or that could be the sequela of amyloid angiopathy. - Etat crible appearance of the basal ganglia bilaterally as the sequela of chronic hypertension. Chronic lacunar infarcts within the cerebellar hemispheres bilaterally. Discharge Plan Discharge Anticipated Discharge Date/Time: 01/06/24 13:39 Patient Disposition: Home, Self-Care Discharge Diagnosis: possible cva vs tia Referrals: Physician,None [Primary Care Provider] - 1 Week Discharge Medications: New amlodipine 5 mg Tablet 5 mg PO DAILY Qty: 60 0RF Protocol: Hold for SBP< HOLD for SBP < : 90 aspirin 81 mg Tablet,Delayed Release (Dr/Ec) 81 mg PO DAILY Qty: 90 0RF atorvastatin 40 mg Tablet 40 mg PO BEDTIME Qty: 60 0RF No Action No Known Home Meds Discharge Orders: Discharge Order (Routine); Ordered 01/06/24 Ordered By: Henry Antunez Diet: Advance to usual diet Activity on Discharge: As tolerated Stand Alone Forms: Patient Portal Discharge page Care Plan Goals: Patient came Left-sided upper and lower extremity numbness and tingling-further workup including cta done-indeterminate hypodensity in anterior frontal,ch. cerebellar hemispheres followed by MRI : showed ch infracts of Chronic lacunar infarcts within the cerebellar hemispheres bilaterally,a few punctate acute infarcts within the right dorsal coleen and involving the right frontal lobe at the high convexity.She was admitted and monitored on telemetry which seems fine, started on amlodipine for blood pressure control, aspirin and statin- also seen by Neurology: CTA a nd MRI reviewed: Recommended to continue aspirin, statin and beta blood pressure control. plan: Continue aspirin 81 mg daily, atorvastatin 40 mg daily, amlodipine 5 mg daily Monitor blood pressure closely at home Strongly advised to get PCP appointment for further management. If blood pressure consistently above 140/90 mmhg-need further adjustment of amlodipine dosing. Seen by PT and OT-recommended DC home. Health Concerns: As above. Plan of Treatment: As above. Assessment: As above.
--- NOTE | 2024-01-06 14:14 | MHC.CM.PN ---
Patient has been medically cleared for dc to home today, self care.
[2024-01-06] MEDS: Enoxaparin Sodium 40 MG/0.4 ML SYRINGE SUBCUT (14:49)
== END 2024-01-06 16:20 | disposition home or self-care (01) | DRG 66 ==
LOC: HO.ED 13:04 → HO.EDOVER 14:40 → HO.IMC 17:06
PROVIDERS: Admitting Provider Student in an Organized Health Care Education/Training Program; Emergency Provider Emergency Medicine; Visit Provider Internal Medicine
DX: I63.9 Cerebral infarction, unspecified (principal); R20.0 Anesthesia of skin; R29.700 NIHSS score 0; R27.8 Other lack of coordination; I16.0 Hypertensive urgency; E87.6 Hypokalemia
CPT/HCPCS: 36415; 70450; 70496; 70498; 70551; 80048; 80053; 80061; 82607; 82746; 82947; 84443; 84484; 85025; 85610; 85730; 93005; 97161; 97165; 99222; 99285; J1650; J1920; Q9967

== ENCOUNTER → 2024-01-05 10:18 | Outpatient (BNV) | payer OTHER, SELFPAY | PROVIDERS: Emergency Provider Emergency Medicine; Visit Provider Internal Medicine | DX: I10 Essential (primary) hypertension (principal) | CPT/HCPCS: 93010 ==

== ENCOUNTER → 2024-01-05 14:39 | Outpatient (BNV) | payer OTHER, SELFPAY | PROVIDERS: Admitting Provider Student in an Organized Health Care Education/Training Program; Emergency Provider Emergency Medicine; Visit Provider Internal Medicine | DX: R20.0 Anesthesia of skin (principal) | CPT/HCPCS: 99223; 99239 ==

== ENCOUNTER → 2024-01-05 14:39 | Outpatient (BNV) | payer OTHER, SELFPAY | PROVIDERS: Admitting Provider Student in an Organized Health Care Education/Training Program; Emergency Provider Emergency Medicine; Visit Provider Psychiatry & Neurology Neurology | DX: R20.0 Anesthesia of skin (principal) | CPT/HCPCS: 99222; 99231 ==

== ENCOUNTER 2024-10-27 17:00 | Outpatient (RCR) | payer OTHER, SELFPAY | END 2024-11-18 14:15 | disposition home or self-care (01) | LOC: HO.PT 17:00 | PROVIDERS: PCP Internal Medicine; Visit Provider Internal Medicine | DX: I63.9 Cerebral infarction, unspecified (principal) | CPT/HCPCS: 97110; 97112; 97162 ==

== ENCOUNTER 2025-04-05 12:54 | Outpatient (REF) | payer OTHER, SELFPAY ==
--- NOTE | ~2025-04-05 | XR_ITS ---
EXAMINATION: XR HIP, LEFT CLINICAL INFORMATION: PAIN COMPARISON: None available. TECHNIQUE: Two views of the left hip. FINDINGS: No fracture, dislocation, or suspicious bone lesion. Normal bone mineralization. Normal alignment. Mild osteoarthritis of the left hip. Soft tissues appear normal. XR/XR hip LT min 2V IMPRESSION: 1. No acute bony abnormalities. 2. Mild left hip osteoarthritis. Electronically signed by: Nasir James MD 04/05/2025 02:03 PM EDT
--- NOTE | ~2025-04-05 | XR_ITS ---
EXAMINATION: XR LUMBOSACRAL SPINE CLINICAL INFORMATION: LUMBAR RADICULOPATHY COMPARISON: None available. TECHNIQUE: Three views of the lumbosacral spine. FINDINGS: There is a minimal right convex scoliosis, apex at L2. There is a normal lumbar lordosis. No compression deformities, acute fracture, or suspicious bone lesion. There is a minimal degenerative type retrolisthesis of L1 on L2 and L2 on L3. Alignment is otherwise anatomic. Severe disc degeneration L1-2 and L2-3. There is otherwise mild disc degeneration. Normal facet alignment. Multilevel bilateral degenerative facet changes most notable L3-S1. The sacrum is intact. There are mild degenerative changes in the SI joints bilaterally. There is no discrete soft tissue abnormality. XR/XR lumbar spine 2-3V IMPRESSION: 1. No acute lumbar abnormalities. 2. Mild right convex scoliosis, and moderate multilevel lumbar spondylosis. Electronically signed by: Nasir James MD 04/05/2025 02:06 PM EDT
--- OUTSIDE RECORDS SUMMARY | 2025-04-05 14:47 | XMS_ITS | Clinical Summary ---
Author Organization [facility] Address [address] [address] Phone Care Team Providers Care Document Control Supervisor Name Role Phone Deepthi Sorensen MD Primary Care Provider [phone] Allergies Active Allergy Reactions Criticality Noted Date Comments Amoxicillin 08/25/2024 Atorvastatin Weakness Low 07/28/2024 Muscle aches Medications gabapentin (NEURONTIN) 300 mg capsule Take 1 capsule (300 mg total) by mouth 2 (two) times a day. 4 Active aspirin 81 mg EC tablet Take by mouth. Active pravastatin (PRAVACHOL) 10 mg tablet Take 1 tablet (10 mg total) by mouth every other day. 15 each 5 Active amLODIPine (NORVASC) 5 mg tablet TAKE 1 TABLET BY MOUTH EVERY DAY 90 tablet 1 5 Active losartan (COZAAR) 25 mg tablet TAKE 1 TABLET BY MOUTH EVERY DAY 90 tablet 1 5 Active amLODIPine (NORVASC) 5 mg tablet Take 1 tablet (5 mg total) by mouth 1 (one) time each day. 4 03/07/20 25 Discontinued Active Problems Problem Noted Date Diagnosed Date Other ill-defined heart diseases 11/11/2024 S/P patent foramen ovale closure 11/02/2024 Overview (11/22/2024): August 01, 2024 - successful PFO closure with a [place] cardio form device by Dr. Tien Jewell at [facility] Given history of CVA and PFO with imaging possibly consistent with embolism etiology -ROPE score was 4 with a 38% likelihood his CVA was attributable to the PFO Assessment & Plan (11/22/2024 1:46 PM EST): Successful PFO closure in July 2024. Patient has completed her Plavix and be on aspirin lifelong. Will update an echocardiogram now that it is three months post procedure. Orders: Transthoracic echocardiogram (TTE) complete with PRN contrast, bubble, strain, and 3D order panel; Future Class 1 obesity 08/25/2024 CVA (cerebral vascular accident) (CMS/HCC V24, C MS/HCC V28) 04/07/2024 Overview (11/22/2024): 2023 - manifested as left hand paresthesias, strokes discovered on brain MRI completed at [facility] - small foci acute stroke in the right MCA territory; follow up with MRI at [facility] showed 2 additional new acute infarcts in the right hemisphere/R. frontal lobe, also embolic appearing; echocardiogram showed large PFO Assessment & Plan (11/22/2024 1:46 PM EST): Likely embolic strokes possibly related to PFO now status post closure. Residual symptoms stable, but limiting her quality of life. She will continue to work with Neurology and PCP for symptom management. Continue with gabapentin. Not currently on statin. Orders: Transthoracic echocardiogram (TTE) complete with PRN contrast, bubble, strain, and 3D order panel; Future Tingling of upper extremity 04/07/2024 Hypertension 03/23/2007 Assessment & Plan (11/22/2024 1:46 PM EST): Elevated today in the office. This is generally controlled. Continue with losartan and amlodipine. I have asked her to monitor her blood pressures at home. She will contact our office if she remains over 140/90. Orders: ECG 12 lead Pure hypercholesterolemia 03/23/2007 Assessment & Plan (11/22/2024 1:46 PM EST): February 2024 - LDL 45. Patient self discontinued statin due to left sided body aches. Does not wish to restart statin therapy at this time. Orders: ECG 12 lead Allergic rhinitis 02/20/2006 Depressive disorder 02/20/2006 Resolved Problems Problem Noted Date Diagnosed Date Resolved Date PFO (patent foramen ovale) 04/07/2024 0 11/02/2024 Encounters Date Type Department Care Team Description 02/03/2025 4:30 PM EDT Office Visit Adult Medicine [address] [phone] Deepthi Sorensen MD Primary hypertension (Primary Dx); Pure hypercholesterolemia; S/P patent foramen ovale closure; Screening mammogram for breast cancer from Last 3 Months Immunizations Name Administration Dates Next Due Pfizer SARS-CoV-2 COVID-19, mRNA, LNP-S, preservative free 11/05/2020 Tdap Tetanus diptheria acell ular pertussis (Boostrix; Adacel) 7yo and older 01/13/2017 Surgical History Surgery Date Site/Laterality Comments OTHER SURGICAL HISTORY PROCEDURE: DENIES PREVIOUS SURGERY CARDIAC CATHETERIZATION DONE ON 08/01/2024 AT [facility] INDICATIONS:Patent foramen ovale Medical History Medical History Date Comments Depressive disorder, not els ewhere classified DX:Depressive disorder, not elsewhere classified Allergic rhinitis, cause unspecified DX:Allergic rhinitis, cause unspecified Pure hypercholesterolemia 03/23/2007 DX:Pur e hypercholesterolemia Essential hypertension, benign 03/23/2007 D X:Essential hypertension, benign Family History Medical History Relation Name Comments Other cancer Mother ovarian cancer? Breast cancer Neg Hx Colon cancer Neg Hx Uterine cancer Neg Hx Relation Name Status Comments Brother 1 Alive chrones Brother 2 Alive well Daughter Alive well Father Alive well Maternal Grandfather (Age 80) al zheimers Maternal Grandmother Alive well at 93 Mother Alive well Paternal Grandfather ?? Paternal Grandmother ?? Sister Alive well Son Alive well Social History Tobacco Use Types Packs/Day Years Used Date Smoking Tobacco: Former Cigarettes Smokeless Tobacco: Never Tobacco Cessation:Counseling Given: Not Answered Alcohol Use Standard Drinks/Week Comments Yes 0 (1 standard drink = 0.6 oz pur e alcohol) socially Comments Unknown Sex and Gender Information Value Date Recorded Sex Assigned at Not on file Legal Sex Female 8:06 PM EST Gender Identity Not on file Sexual Orientation Not on file Obstetrics History Last Filed Vital Signs Vital Sign Reading Time Taken Comments Blood Pressure 130/74 02/03/2025 4:44 PM EDT Pulse 76 02/03/2025 4:44 PM EDT Temperature 36.4 C (97.5 F) 02/03/2025 4:44 PM EDT Respiratory Rate 14 02/03/2025 4:44 PM EDT Oxygen Saturation 95% 11/02/2024 9:39 AM EST Inhaled Oxygen Concentration - - Weight 97.1 kg (214 lb) 02/03/2025 4:44 PM EDT Height 170.2 cm (5' 7 ) 02/03/2025 4:44 PM EDT Body Mass Index 33.52 02/03/2025 4:44 PM EDT Plan of Treatment Upcoming Encounters Date Type Department Care Team (Late st Contact Info) Description 05/10/2025 9:30 AM EDT Office Visit Adult Medicine [address] [phone] Paco Matthews [facility] [address] [place] [address] Health Maintenance Due Date Last Done Comments Pneumococcal Vaccine: 50+ Years (1 of 1 - PCV) 2011 Zoster Vaccines (1 of 2) 2011 Cervical Cancer Screening: P ap Smear 01/28/2020 01/27/2017 Breast Cancer Screening 11/23/2020 11/23/19 19, 11/19/2017 Colorectal Cancer Screening: Stool Based Tests (FOBT/FIT) 05/17/2024 Depression Screening 05/17/2024 HIV Screening 05/17/2024 Hepatitis C Screening 05/17/2024 Social Influencers of Health Screening 05/17/2024 COVID-19 Vaccine (2 - 2023-2 5 season) 2024 11/05/2020 Influenza Vaccine (Season Ended) 2025 Hypertension/CHF/CAD Annual BMP Blood Test 01/18/2026 01/18/2025, 06/30/2024 DTaP,Tdap,and Td Vaccines (2 - Td or Tdap) 01/13/2027 01/13/2017 Cholesterol Screening (Lipid Panel) 01/18/2030 01/18/2025, 06/30/2024 RSV Immunization Adult Patients (1 - 1-dose 75+ series) 2036 HIB Vaccines Aged Out No longer eligi ble based on patient's age to complete this topic HPV Vaccines Aged Out No longer eligi ble based on patient's age to complete this topic Hepatitis A Vaccines Aged Out No long er eligible based on patient's age to complete this topic Hepatitis B Vaccines Aged Out No long er eligible based on patient's age to complete this topic IPV Vaccines Aged Out No longer eligi ble based on patient's age to complete this topic MMR Vaccines Aged Out No longer eligi ble based on patient's age to complete this topic Meningococcal ACWY Vaccine Aged Out N o longer eligible based on patient's age to complete this topic Meningococcal B Vaccine Aged Out No l onger eligible based on patient's age to complete this topic Pneumococcal Vaccine: Pediatrics (0 to 5 Years) and At-Risk Patients (6 to 64 Years) Aged Out No longer eligible b ased on patient's age to complete this topic RSV Immunization Patients Under 20 months Aged Out No longer eligible b ased on patient's age to complete this topic Varicella Vaccines Aged Out No longer eligible based on patient's age to complete this topic Procedures Procedure Name Priority Date/Time Associated Diagnosis Comments LIPID PANEL WITH REFLEX TO DIRECT LDL Routine 01/18/2025 8:46 AM EDT Pure hypercholesterolemia COMPREHENSIVE METABOLIC PANEL Routine 01/18/2025 8:46 AM EDT Primary hypertension SCR MAMMO BI INCL CAD Routine 11/23/2018 8:20 AM EST Encounter for screening mammogram for malignant neoplasm of breast from Last 3 Months or Most Recently Relevant to Health Maintenance Results * (ABNORMAL) Lipid panel with reflex to direct LDL (01/18/2025 8:46 AM EDT) Cholesterol 225(H) 0 - 200 mg/dL LAB CHEMISTRY METHOD 01/18/2025 11:51 AM EDT [facility] Triglycerides 77 0 - 150 mg/dL LAB CHEMISTRY METHOD 01/18/2025 11:51 AM EDT [facility] HDL 87 >=40 mg/dL LAB CHEMISTRY METHOD 01/18/2025 11:51 AM EDT [facility] LDL Calculated 123(H) 0 - 100 mg/dL LAB CHEMISTRY METHOD 01/18/2025 11:51 AM T [facility] VLDL Cholesterol Hany 15.4 mg/dL LAB CHEMISTRY METHOD 01/18/2025 11:51 AM [facility] Non HDL Chol. (LDL+VLDL) 138 <145 mg/dL LAB CHEMISTRY METHOD 01/18/2025 11:51 AM [facility] Chol/HDL Ratio 2.6 0.0 - 4.4 LAB CHEMISTRY METHOD 01/18/2025 11:51 AM [facility] Blood Venous blood specimen / Unknown Venipuncture / Unknown 01/18/2025 8:46 AM EDT 01/18/2025 8:46 AM EDT Paco DELACRUZ LAB BLOOD ORDERABLES Final Res ult [facility] [address] [place] [address], [place] [phone] * Comprehensive metabolic panel (01/18/2025 8:46 AM EDT) Sodium 142 133 - 145 mmol/L LAB CHEMISTRY METHOD 01/18/2025 11:50 AM [facility] Potassium 3.9 3.5 - 5.5 mmol/L LAB CHEMISTRY METHOD 01/18/2025 11:50 AM [facility] Chloride 106 96 - 110 mmol/L LAB CHEMISTRY METHOD 01/18/2025 11:50 AM [facility] CO2 28 21 - 32 mmol/L LAB CHEMISTRY METHOD 01/18/2025 11:50 AM [facility] Anion Gap 8 3 - 11 LAB CHEMISTRY METHOD 01/18/2025 11:50 AM [facility] Glucose 100 70 - 100 mg/dL LAB CHEMISTRY METHOD 01/18/2025 11:50 AM [facility] BUN 19 5 - 25 mg/dL LAB CHEMISTRY METHOD 01/18/2025 11:50 AM [facility] Creatinine 0.73 0.50 - 1.10 mg/dL LAB CHEMISTRY METHOD 01/18/2025 11:50 AM [facility] eGFR 93 >=60 mL/min/1. 73m2 LAB CHEMISTRY METHOD 01/18/2025 11:50 AM [facility] Comment:Calculation based on the Chronic Kidney Disease Epidemiology Collaboration (CKD-EPI) equation refit without adjustment for race. BUN/Creatinine Ratio 26.0 LAB CHEMISTRY METHOD 01/18/2025 11:50 AM [facility] Calcium 9.7 8.5 - 10.5 mg/dL LAB CHEMISTRY METHOD 01/18/2025 11:50 AM [facility] AST (SGOT) 10 10 - 42 unit/L LAB CHEMISTRY METHOD 01/18/2025 11:50 AM [facility] ALT (SGPT) 23 10 - 60 unit/L LAB CHEMISTRY METHOD 01/18/2025 11:50 AM [facility] Alkaline Phosphatase 114 42 - 121 unit/L LAB CHEMISTRY METHOD 01/18/2025 11:50 AM [facility] Total Protein 7.0 6.0 - 8.0 g/dL LAB CHEMISTRY METHOD 01/18/2025 11:50 AM [facility] Albumin 3.8 3.2 - 5.0 g/dL LAB CHEMISTRY METHOD 01/18/2025 11:50 AM [facility] Total Bilirubin 0.4 0.0 - 1.4 mg/dL LAB CHEMISTRY METHOD 01/18/2025 11:50 AM [facility] Blood Venous blood specimen / Unknown Venipuncture / Unknown 01/18/2025 8:46 AM EDT 01/18/2025 8:46 AM EDT Paco DELACRUZ LAB BLOOD ORDERABLES Final Res [facility] [address] [place] [address], * SCR MAMMO BI INCL CAD (11/23/2018 8:20 AM EST) Anatomical Region Laterality Modality Radiographic Sheree ging 11/19/2017 8:08 AM EST Narrative 11/23/2018 1:03 PM EST This is a summary report. The complete report is available in the patient's medical record. If you cannot access the medical record, please contact the sending organization for a detailed fax or copy. Full field digital screening mammography, reviewed with CAD and compared to previous. The breasts are composed of fatty and fibroglandular tissue. No suspicious mass, architectural distortion or suspicious calcifications are identified. IMPRESSION: : No mammographic evidence of malignancy. BIRADS 1-Negative; N. 5 year breast cancer risk assessment 1.6 % Lifetime breast cancer risk assessment 9.5 % Breast cancer risk category Low (<15%) Procedure Note Britton Cox MD - 10/07/2022 This is a summary report. The complete report is available in thepatient's medical record. If you cannot access the medical record, pleasecontact the sending organization for a detailed fax or copy. Full field digital screening mammography, reviewed with CAD and comparedto previous. The breasts are composed of fatty and fibroglandular tissue.No suspicious mass, architectural distortion or suspicious calcificationsare identified. IMPRESSION: : No mammographic evidence of malignancy. BIRADS 1-Negative; N. 5 year breast cancer risk assessment 1.6 % Lifetime breast cancer risk assessment 9.5 % Breast cancer risk category Low (<15%) Nirmala Guy MD IMG XR PROCEDURES Final Result from Last 3 Months or Most Recently Relevant to Health Maintenance Insurance [employer] Care Teams Document Control Supervisor Relationship Specialty Start Date End Date Deepthi Sorensen MD [address] [place] [id number] PCP - General 01/08/24
== END 2025-04-05 12:55 | disposition home or self-care (01) ==
LOC: HO.XRAY 12:54
PROVIDERS: Visit Provider Registered Nurse
DX: M25.552 Pain in left hip (principal); M54.16 Radiculopathy, lumbar region
CPT/HCPCS: 72100; 73502

== ENCOUNTER → 2025-04-05 13:20 | Outpatient (BNV) | payer OTHER, SELFPAY | PROVIDERS: Visit Provider Radiology Diagnostic Radiology | DX: M25.552 Pain in left hip (principal); M54.16 Radiculopathy, lumbar region | CPT/HCPCS: 72100; 73502 ==

== ENCOUNTER 2025-08-11 08:15 | Outpatient (AMB) | payer OTHER, SELFPAY ==
--- NOTE | 2025-08-11 08:32 | MHC.OFFVIS ---
Intake Visit Reasons: 3m Allergies oxycodone Adverse Reaction (Verified 08/11/25 08:38) Hallucinations Medication List - Last Reconciled 08/11/25 by Michell Buckley CNP amlodipine 5 mg See Protocol PO DAILY aspirin 81 mg PO DAILY blood pressure monitor (Blood Pressure Kit) As directed gabapentin 300 mg PO QID losartan 25 mg PO DAILY pravastatin 10 mg PO Q OTHER DAY HPI Comments Details: She was doing okay. Left sided burning-type pain is better with increased dose of gabapentin. No medication side effects. Some left hip pain, uses ice or heat and Voltaren gel as needed which helps. No falls. No new stroke-like symptoms. Blood pressure has been okay. Sleep was okay. 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 Started with more lower back and L hip pain after she began walking more in spring 2024. BP is better controlled. She presented to [facility] ED in February 2024 for evaluation of left-sided numbness and tingling when woke up, and the numbness extended from left shoulder to foot, without any reduction in strength, but feels like her coordination and balance was off when walking. No facial deficits noted: Denies dysarthria, difficulty word finding, facial droop, headache, or acute vision changes. Still feels some sensory abnormality in some fingers of left hand, and intermittent left gluteal and post thigh numbness if she sits for a while. Reports similar episode around 2021. Says she exercised and stretched, and symptoms resolved in a few weeks. Did not seek any medical intervention at that time. Patient denies chest pain/pressure, palpitations. No shortness of breath.In the ED pt was hypertensive up to 204/97, vitals otherwise WNL. Labs were significant for potassium 3.1, otherwise grossly unremarkable. No leukocytosis. Stable H&H. Renal and hepatic function WNL. CT of head showed extensive white matter microvacsular disease with no acute intracranial pathology. CTA of head and neck did not find any acute arterial occlusion or hemodynamically significant stenosis. MRI showed two small acute infarcts in left parietal cortex and dorsal medulla, and extensive confluent white matter disease including coleen, lacunar infarcts in cerebellum bilaterally, and in right thalamus. She also has a PFO and had 30 day cardiac event monitor and will f/u with cardio. [place] [facility] [place] some additional strokes on a f/[place] [facility] [place] so she was admitted. EKG demonstrated normal sinus rhythm without evidence of significant ST elevations or depressions. Pt was treated with labetalol. [facility] Social History Household Members: Spouse Housing: House Do you presently have visiting nurse or other home services: No Patient Tobacco Use Status: Never used Tobacco service: No Review of Systems Const Denies chills, Denies daytime sleepiness, Denies difficulty sleeping, Denies fatigue, Denies fever(s), Denies frequent falls, Denies headache(s), Denies increased appetite, Denies poor appetite, Denies snoring, Denies weakness, Denies weight gain and Denies weight loss Eyes Denies loss of vision ENT Denies vertigo, Denies dizziness, Denies headache(s) and Denies neck pain Card Denies chest pain at rest, Denies chest pain with activity, Denies syncope, Denies leg edema, Denies palpitations, Denies dyspnea and Denies dyspnea on exertion Resp Denies cough, Denies dyspnea, Denies dyspnea on exertion and Denies snoring GI Denies abdominal pain, Denies constipation, Denies heartburn, Denies diarrhea and Denies nausea Denies urinary frequency, Denies urinary incontinence and Denies urinary urgency Musc Denies abnormal gait, Reports back pain, Denies myalgias, Denies arthralgias, Denies neck pain, Denies numbness and Denies tingling Neuro Denies abnormal gait, Denies vertigo, Denies dizziness, Denies syncope, Denies frequent falls, Denies headache(s), Denies lack of coordination, Denies loss of vision, Denies memory loss, Denies numbness, Denies Other visual disturbances, Denies restless legs, Denies seizure-like activity, Denies tingling, Denies paresthesias, Denies tremor(s) and Denies weakness Psych Denies anxiety, Denies depression, Denies auditory hallucinations, Denies memory loss and Denies visual hallucinations Endo Denies fatigue and Denies palpitations Physical Exam Const Other: General Appearance:? normal, in no acute distress. Heart:? S1, S2 normal, no murmurs. Lungs:? clear anteriorly and posteriorly. Musculoskeletal:? normal. Extremities:? no edema. Psych:? alert, oriented, cognitive function intact, cooperative with exam. Neuro Other: Abnormal Neurological Findings:?none.? Mental Status: alert and oriented X 3. Normal attention, orientation, memory, and affect. Cranial Nerves: Pupils are equal, round, and reactive to light. External ocular muscles are intact. Visual wright are full, no ptosis. Face is symmetrical, no facial weakness or droop. Facial sensations are normal. Tongue protrudes in midline. Palate elevates symmetrically. Shoulder shrugging is normal Motor Examination: Normal muscle tone, bulk and strength. No atrophy or fasciculations. No drift of the extended upper extremities. DTR 2+. Plantars are flexor. Sensory Exam: Normal light touch, temperature, pinprick, vibration, and joint-position sensations. Rhomberg sign is absent. Coordination: No ataxia. No titubation. Gait Exam: Within normal limits. Cerebellar Signs: [id number] is okay. Extrapyramidal System: No tremor, rigidity with normal facial expressions. No bradykinesia. No bradyphrenia. Normal arm swing and posture. No propulsion or retropulsion. Speech: Normal. Results Reviewed Results Reviewed: [address] [address] XRay Report Signed Patient: Salo Cummings MR#: [id number] : 1960 Acct:[id number] Age/Sex: 64 / F ADM Date: 04/05/25 Loc: [facility] Attending Dr: Michell Buckley CNP Ordering Physician: Michell Buckley CNP Date of Service: 04/05/25 Procedure(s): XR lumbar spine 2-3V Accession Number(s): [id number] cc: Michell Buckley CNP~ EXAMINATION: XR LUMBOSACRAL SPINE CLINICAL INFORMATION: LUMBAR RADICULOPATHY COMPARISON: None available. TECHNIQUE: Three views of the lumbosacral spine. FINDINGS: There is a minimal right convex scoliosis, apex at L2. There is a normal lumbar lordosis. No compression deformities, acute fracture, or suspicious bone lesion. There is a minimal degenerative type retrolisthesis of L1 on L2 and L2 on L3. Alignment is otherwise anatomic. Severe disc degeneration L1-2 and L2-3. There is otherwise mild disc degeneration. Normal facet alignment. Multilevel bilateral degenerative facet changes most notable L3-S1. The sacrum is intact. There are mild degenerative changes in the SI joints bilaterally. There is no discrete soft tissue abnormality. XR/XR lumbar spine 2-3V IMPRESSION: 1. No acute lumbar abnormalities. 2. Mild right convex scoliosis, and moderate multilevel lumbar spondylosis. Electronically signed by: Nasir James MD 04/05/2025 02:06 PM EDT RP Dictated By: Nasir James MD Signed By: <Electronically signed by Nasir James MD in OV> 04/05/25 [address] [place] [address] XRay Report Signed Patient: Salo Cummings MR#: [id number] : 1960 Acct:[id number] Age/Sex: 64 / F ADM Date: 04/05/25 Loc: [facility] Attending Dr: Michell Buckley CNP Ordering Physician: Michell Buckley CNP Date of Service: 04/05/25 Procedure(s): XR hip LT min 2V Accession Number(s): [id number] cc: Michell Buckley CNP~ EXAMINATION: XR HIP, LEFT CLINICAL INFORMATION: PAIN COMPARISON: None available. TECHNIQUE: Two views of the left hip. FINDINGS: No fracture, dislocation, or suspicious bone lesion. Normal bone mineralization. Normal alignment. Mild osteoarthritis of the left hip. Soft tissues appear normal. XR/XR hip LT min 2V IMPRESSION: 1. No acute bony abnormalities. 2. Mild left hip osteoarthritis. Electronically signed by: Nasir James MD 04/05/2025 02:03 PM EDT RP 07/05/24 NCV/EMG UE Normal motor and sensory nerve conduction velocities in the upper extremities. Normal EMG in the left C5-T1 innervated muscles. 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 EMG in the left L4-S1 innervated muscles is consistent with neuropathic changes. Assessment & Plan Assessment & Plan (1) History of stroke with residual effects: Code(s): I69.30 - Unspecified sequelae of cerebral infarction Category: Medical Plan: Continue gabapentin 300mg 1 capsule four times a day. (2) Lumbar spondylosis: Code(s): M47.816 - Spondylosis without myelopathy or radiculopathy, lumbar region Category: Medical (3) Osteoarthritis: Code(s): M19.90 - Unspecified osteoarthritis, unspecified site Category: Medical Qualifiers: Osteoarthritis location: multiple joints Osteoarthritis type: unspecified Qualified Code(s): M15.9 - Polyosteoarthritis, unspecified Plan: XR results reviewed. She was not interested in medication at this time. Plan . Medications: Discontinued atorvastatin Discontinued Reason: Patient no longer taking 40 mg PO BEDTIME 60 tabs 0RF Coding Level of Care Code Est Pt Level 4 (46491) Diagnoses History of stroke with residual effects I69.30 Lumbar spondylosis M47.816 Osteoarthritis of multiple joints, unspecified osteoarthritis type M15.9 Osteoarthritis location: multiple joints Osteoarthritis type: unspecified
== END 2025-08-11 08:48 | disposition home or self-care (01) ==
LOC: HO.HSM 08:16
PROVIDERS: PCP Internal Medicine; Visit Provider Registered Nurse
DX: I69.30 Unspecified sequelae of cerebral infarction (principal); M47.816 Spondylosis without myelopathy or radiculopathy, lumbar region; M15.9 Polyosteoarthritis, unspecified
CPT/HCPCS: 99214